=== PATIENT | male | born 1975 | race Caucasian/White ===

== ENCOUNTER 2016-10-20 12:11 | Emergency (ER) | payer BC ==
[2016-10-20] MEDS ORDERED: NORMAL SALINE 1000 ML 1,000 ML IV PRN (13:22)
--- NOTE | 2016-10-20 13:26 | ER Document Report ---
ED Fever - General Chief Complaint: Fever Stated Complaint: VOMITING Notes: This is a 41-year-old male who presents complaining of fever, cough, nausea vomiting for 2 days. His was a dentist prescribed Tamiflu. They're concerned because he seems to be getting worse. He feels weak and lightheaded. He has not been able to keep down any oral intake for over 30 hours. He states his urine looks dark. No diarrhea. He denies dysuria. No rashes. He did have a influenza vaccine and pneumonia vaccine this year. He was traveling from out of town for his brother's who just of a brain aneurysm. TRAVEL OUTSIDE OF THE [place] IN LAST 30 DAYS: No Past Medical History - General Information source: Patient, Emergency Med Personnel - Social History Smoking Status: Never Smoker Cigarette use (# per day): No Chew tobacco use (# tins/day): No Frequency of alcohol use: Rare Drug Abuse: None Family History: Other - brother- brain aneurysm Patient has suicidal ideation: No Patient has homicidal ideation: No Pulmonary Medical History: Reports: Hx Pneumonia - Immunizations Hx Diphtheria, Pertussis, Tetanus Vaccination: Yes Hx Pneumococcal Vaccination: 07/18/16 Review of Systems - Review of Systems Constitutional: Chills, Fever, Malaise EENT: Nose congestion Cardiovascular: denies: Chest pain, Syncope Respiratory: Cough, Short of breath Gastrointestinal: Vomiting. denies: Abdominal pain, Diarrhea Genitourinary: denies: Flank pain Musculoskeletal: denies: Leg swelling Skin: denies: Lumps, Rash Hematologic/Lymphatic: denies: Enlarged lymph nodes Neurological/Psychological: denies: Seizure, Lost consciousness, Numbness, Tingling Physical Exam - Vital signs Vitals: Temp Pulse Resp BP Pulse Ox 102.5 F H 105 H 16 117/68 94 10/20/16 12:27 10/20/16 12:27 10/20/16 12:27 10/20/16 12:27 10/20/16 12:27 - General General appearance: Alert In distress: None - HEENT Head: Normocephalic Pupils: PERRL Nasal: Clear rhinorrhea Mouth/Lips: Normal Mucous membranes: Dry Pharynx: Normal Neck: Normal - Respiratory Respiratory status: No respiratory distress Breath sounds: Normal - Cardiovascular Rhythm: Regular, Tachycardia Murmur: Yes - Abdominal Inspection: Normal Bowel sounds: Normal Tenderness: Nontender - Back Back: Normal - Extremities General upper extremity: Normal inspection General lower extremity: Normal inspection - Neurological Neuro grossly intact: Yes Orientation: AAOx4 - Psychological Associated symptoms: Normal affect - Skin Skin Temperature: Hot Skin Moisture: Dry Skin Color: Normal Course - Vital Signs Vital signs: Temp Pulse Resp BP Pulse Ox 99.8 F 91 20 121/78 96 10/20/16 15:19 10/20/16 15:19 10/20/16 15:19 10/20/16 15:19 10/20/16 15:19 - Laboratory Result Diagrams: 10/20/16 12:34 10/20/16 12:34 Laboratory results interpreted by me: 10/20/16 10/20/16 12:34 12:34 RBC 4.21 L Hgb 13.4 L Hct 37.6 L Plt Count 83 L Seg Neuts % (Manual) 89 H Band Neutrophils % 1 L Lymphocytes % (Manual) 4 L Abs Lymphs (Manual) 0.4 L Glucose 126 H Total Protein 6.0 L Albumin 3.2 L Discharge - Discharge Clinical Impression: Influenza-like illness Fever Qualifiers: Fever type: unspecified Qualified Code(s): R50.9 - Fever, unspecified Vomiting Qualifiers: Vomiting type: unspecified Vomiting Intractability: non-intractable Nausea presence: with nausea Qualified Code(s): R11.2 - Nausea with vomiting, unspecified Condition: Good Disposition: HOME, SELF-CARE Instructions: Acetaminophen, Antinausea Medication ([facility]), Vomiting ([facility]) Additional Instructions: Your influenza swabs are negative. Chest x ray is normal appearing. Your platelets are slightly low- this sometimes occurs in the setting of a viral illness. y=You should follow up with your primary care physician as soon as possible for a recheck. Prescriptions: Ondansetron [Zofran Odt 4 mg Tablet] 1 - 2 tab PO Q4H PRN #15 tab.rapdis PRN Reason: For Nausea/Vomiting
[2016-10-20 14:30] LABS: HEMATOCRIT 37.6 % (37.9-51.0); HEMOGLOBIN 13.4 g/dL (13.5-17.0); HGB HCT DIFFERENCE 2.6; MEAN CORPUSCULAR HEMOGLOBIN 31.8 pg (27.0-33.4); MEAN CORPUSCULAR HGB CONC 35.7 g/dL (32.0-36.0); MEAN CORPUSCULAR VOLUME 89 fl (80-97); RED BLOOD COUNT 4.21 10^6/uL (4.35-5.55); RED CELL DISTRIBUTION WIDTH 12.8 % (11.5-14.0); WHITE BLOOD COUNT 8.8 10^3/uL (4.0-10.5)
[2016-10-20 14:34] LABS: ALANINE AMINOTRANSFERASE 65 U/L (21-72); ALBUMIN 3.2 g/dL (3.5-5.0); ALKALINE PHOSPHATASE 91 U/L (38-126); ANION GAP 12 (5-19); ASPARTATE AMINO TRANSFERASE 41 U/L (17-59); BLOOD UREA NITROGEN 16 mg/dL (7-20); CALCIUM 8.8 mg/dL (8.4-10.2); CARBON DIOXIDE 25 mmol/L (22-30); CHLORIDE 102 mmol/L (98-107); CREATININE RESULT 1.14 mg/dL (0.52-1.25); GLUCOSE 126 mg/dL (75-110); POTASSIUM 4.1 mmol/L (3.6-5.0); SODIUM 139.4 mmol/L (137-145)
[2016-10-20 15:02] LABS: BAND NEUTROPHILS % (MANUAL) 1 % (3-5); BASOPHILS % (MANUAL) 0 % (0-2); EOSINOPHILS % (MANUAL) 0 % (0-6); LYMPHOCYTES % (MANUAL) 4 % (13-45); TOTAL CELLS COUNTED 100
[2016-10-20 15:08] LABS: RBC MORPHOLOGY COMMENT NORMO-CYTIC/CHROMIC; TOXIC GRANULATION SLIGHT
[2016-10-20 15:24] VITALS: BP 121/78
[2016-10-20] MEDS ORDERED: KETOROLAC TROMETHAMINE INJ/PF 30 MG/1 ML SDV IV ONE (15:38)
[2016-10-20] MEDS ORDERED: ONDANSETRON HCL INJ/PF 4 MG/2 ML SDV IV ONE (15:38)
[2016-10-20 16:09] LABS: APPEARANCE,URINE SLIGHTLY-CLOUDY; BILIRUBIN,URINE NEGATIVE (NEGATIVE); GLUCOSE, URINE NEGATIVE (NEGATIVE); KETONES,URINE NEGATIVE (NEGATIVE); LEUKOCYTE ESTERASE,URINE NEGATIVE (NEGATIVE); NITRITE,URINE NEGATIVE (NEGATIVE); PROTEIN,URINE 100 mg/dL (NEGATIVE); URINE SPECIFIC GRAVITY 1.015
== END 2016-10-20 16:10 | disposition home or self-care (01) ==
LOC: ER 12:11
DX: J11.1 Influenza due to unidentified influenza virus with other respiratory manifestations (principal); R50.9 Fever, unspecified; R11.2 Nausea with vomiting, unspecified; R05 Cough; R53.1 Weakness
CPT/HCPCS: 99283; 96361; 96374; 96375; 36415; 87040; 87086; 85025; 87077; 80053; 81001; 83605; 87804; 71020; J1885; J2405; J7030